=== PATIENT | female | born 1945 | race Caucasian/White ===

== ENCOUNTER 2018-08-04 15:42 | Inpatient (IN) | payer MEDICARE, OTHER ==
[2018-08-04] MEDS ORDERED: NORMAL SALINE 1000 ML 500 ML IV ONE (16:34)
--- NOTE | 2018-08-04 16:38 | ER Document Report ---
ED Medical Screen (RME) - General Chief Complaint: Facial Swelling Stated Complaint: EYE SWELLING Time Seen by Provider: 08/04/18 16:30 Notes: 73 years old female has a habit of scratching her head, diabetic, presents with left frontoparietal swelling redness. And abscess. Multiple small erythematous lesions in the skull TRAVEL OUTSIDE OF THE [place] IN LAST 30 DAYS: No - Related Data Allergies/Adverse Reactions: latex [Latex] Allergy (Mild, Verified 08/04/18 16:20) RASH,ITCHING Sulfa (Sulfonamide Antibiotics) Allergy (Mild, Verified 08/04/18 16:20) NAUSEA VOMITING meperidine HCl [From Demerol] Allergy (Unknown, Verified 08/04/18 16:20) morphine [Morphine] Allergy (Unknown, Verified 08/04/18 16:20) nickel [Nickel] Allergy (Unknown, Verified 08/04/18 16:20) Shellfish * [Shellfish] Allergy (Verified 08/04/18 16:20) Hives epinephrine [Epinephrine] Adverse Reaction (Unknown, Verified 08/04/18 16:20) Past Medical History - Social History Frequency of alcohol use: None Drug Abuse: None - Past Medical History Cardiac Medical History: Reports: Hx Atrial Fibrillation, Hx Hypertension Denies: Hx Coronary Artery Disease, Hx Heart Attack Pulmonary Medical History: Reports: Hx Asthma - [place] Denies: Hx Bronchitis, Hx COPD, Hx Pneumonia Neurological Medical History: Denies: Hx Cerebrovascular Accident, Hx Seizures Endocrine Medical History: Reports: Hx Diabetes Mellitus Type 2 - DIET CONTROLED, Hx Hypothyroidism - POLA'S Renal/ Medical History: Denies: Hx Peritoneal Dialysis GI Medical History: Reports: Hx Gastroesophageal Reflux Disease, Hx Hiatal Hernia Musculoskeltal Medical History: Reports Hx Arthritis, Reports Hx Fibromyalgia Psychiatric Medical History: Reports: Hx Anxiety, Hx Depression Past Surgical History: Reports: Hx Appendectomy, Hx Cholecystectomy, Hx Gynecologic Surgery - OVARIAN CYSTS, EX-LAPS AND LAP SCOPES FOR ENDOMETRIOSIS, Hx Hysterectomy, Hx Orthopedic Surgery - SCREW IN RIGHT 1ST TOE, Hx Tonsillectomy - Immunizations Hx Diphtheria, Pertussis, Tetanus Vaccination: Yes Physical Exam - Vital signs Vitals: Temp Pulse Resp BP Pulse Ox 98.4 F 117 H 14 130/81 H 96 08/04/18 15:48 08/04/18 15:48 08/04/18 15:48 08/04/18 15:48 08/04/18 15:48 Course - Vital Signs Vital signs: Temp Pulse Resp BP Pulse Ox 98.4 F 117 H 14 130/81 H 96 08/04/18 15:48 08/04/18 15:48 08/04/18 15:48 08/04/18 15:48 08/04/18 15:48
--- NOTE | 2018-08-04 17:53 | RADIOLOGY REPORT (SQ) ---
EXAM DESCRIPTION: CT HEAD WITHOUT COMPLETED DATE/TIME: 08/04/2018 5:41 pm REASON FOR STUDY: Left frontoparietal abscess COMPARISON: None. TECHNIQUE: Axial images acquired through the brain without intravenous contrast. Images reviewed wi th bone, brain and subdural windows. Additional sagittal and coronal reconstructions were generated. Images stored on PACS. All CT scanners at this facility use dose modulation, iterative reconstruction, and/or weight based d osing when appropriate to reduce radiation dose to as low as reasonably achievable (ALARA). [facility]: Dose Right [facility]: CareDose [facility]: Dose Right [facility]: Teradose 4D [facility]: Smart DirectRM RADIATION DOSE: CT Rad equipment meets quality standard of care and radiation dose reduction techniq ues were employed. CTDIvol: 53.2 mGy. DLP: 964 mGy-cm. mGy. LIMITATIONS: None. FINDINGS: VENTRICLES: Normal size and contour. CEREBRUM: No masses. No hemorrhage. No midline shift. No evidence for acute infarction. Normal gra y/white matter differentiation. No areas of low density in the white matter. CEREBELLUM: No masses. No hemorrhage. No alteration of density. No evidence for acute infarction. EXTRAAXIAL SPACES: No fluid collections. No masses. ORBITS AND GLOBE: No intra- or extraconal masses. Normal contour of globe without masses. CALVARIUM: No fracture. PARANASAL SINUSES: No fluid or mucosal thickening. SOFT TISSUES: Soft tissue swelling over the left frontal scalp. OTHER: No other significant finding. IMPRESSION: No acute intracranial pathology. Soft tissue swelling over the left frontal scalp. EVIDENCE OF ACUTE STROKE: NO. COMMENT: Quality ID # [id number]: Final reports with documentation of one or more dose reduction techniques (e.g., Automated exposure control, adjustment of the mA and/or kV according to patient size, use of iterative reconstruction technique) TECHNICAL DOCUMENTATION: JOB ID: [id number] [employer]- All Rights Reserved Reading location - IP/workstation name: [email or web address]
[2018-08-04] MEDS ORDERED: CEFTRIAXONE 1 GM/D5W RTU 1 GM/50 ML RTUPB IV ONE (18:00)
[2018-08-04] MEDS ORDERED: VANCOMYCIN HCL INJ 1000 MG VIAL IV ONE (18:48)
[2018-08-04 18:53] LABS: HEMATOCRIT 41.2 % (36.0-47.0); HEMOGLOBIN 13.9 g/dL (12.0-15.5); MEAN CORPUSCULAR HEMOGLOBIN 29.5 pg (27.0-33.4); MEAN CORPUSCULAR HGB CONC 33.6 g/dL (32.0-36.0); MEAN CORPUSCULAR VOLUME 88 fl (80-97); PLATELET COUNT 270 10^3/uL (150-450); RED CELL DISTRIBUTION WIDTH 14.3 % (11.5-14.0); WHITE BLOOD COUNT 21.5 10^3/uL (4.0-10.5)
[2018-08-04 19:12] LABS: ALANINE AMINOTRANSFERASE 27 U/L (9-52); ALBUMIN 3.8 g/dL (3.5-5.0); ALKALINE PHOSPHATASE 148 U/L (38-126); ANION GAP 10 (5-19); ASPARTATE AMINO TRANSFERASE 17 U/L (14-36); BILIRUBIN,DIRECT 0.2 mg/dL (0.0-0.4); BILIRUBIN,TOTAL 0.4 mg/dL (0.2-1.3); BLOOD UREA NITROGEN 23 mg/dL (7-20); CALCIUM 9.3 mg/dL (8.4-10.2); CARBON DIOXIDE 23 mmol/L (22-30); CHLORIDE 100 mmol/L (98-107); POTASSIUM 4.6 mmol/L (3.6-5.0); SODIUM 132.9 mmol/L (137-145); TOTAL PROTEIN 6.3 g/dL (6.3-8.2)
[2018-08-04 19:22] LABS: GLUCOSE 456 mg/dL (75-110)
[2018-08-04 19:29] LABS: ABSOLUTE LYMPHOCYTES# (MANUAL) 1.9 10^3/uL (0.5-4.7); ABSOLUTE MONOCYTES # (MANUAL) 1.7 10^3/uL (0.1-1.4); ABSOLUTE NEUTROPHILS# (MANUAL) 17.8 10^3/uL (1.7-8.2); BASOPHILS % (MANUAL) 0 % (0-2); EOSINOPHILS % (MANUAL) 0 % (0-6); LYMPHOCYTES % (MANUAL) 9 % (13-45); MONOCYTES % (MANUAL) 8 % (3-13); SEGMENTED NEUTROPHILS % (MAN) 83 % (42-78); TOTAL CELLS COUNTED 100
[2018-08-04 19:30] LABS: ANISOCYTOSIS SLIGHT; PLATELET COMMENT ADEQUATE; TOXIC GRANULATION SLIGHT
[2018-08-04] MEDS ORDERED: INSULIN REG, HUMAN 100 UNIT/ML 3 ML VIAL (PYX) IV ONE (19:37)
[2018-08-04] MEDS ORDERED: FENTANYL CITRATE INJ/PF 100 MCG/2 ML AMPUL IV ONE (19:39)
--- NOTE | 2018-08-04 21:12 | RADIOLOGY REPORT (SQ) ---
CT ORBITS WITH IV CONTRAST HISTORY: Evaluate for orbital cellulitis. Eye pain. COMPARISON: None. TECHNIQUE: CT scan of the orbits with IV contrast. This exam was performed according to our departmental dose-optimization program, which includes automated exposure control, adjustment of the mA and/or kV according to patient size and/or use of iterative reconstruction technique. FINDINGS: Mild soft tissue swelling overlying the left scalp. No focal fluid collection is seen. No evidence of preseptal or postseptal cellulitis. No retrobulbar mass or hematoma. The bony structures of the orbit are intact. No mucosal thickening or air-fluid levels in the paranasal sinuses. The mastoid air cells are also clear. IMPRESSION: No acute orbital findings.
[2018-08-04] MEDS ORDERED: KETOROLAC TROMETHAMINE INJ/PF 30 MG/1 ML SDV IV ONE (21:36)
[2018-08-04] MEDS ORDERED: GLUCAGON,HUMAN RECOMB 1 MG INJ IM PRN (21:48)
[2018-08-04] MEDS ORDERED: MAGNESIUM HYDROXIDE SUSP 30 ML UDCUP PO PRN (21:48)
[2018-08-04] MEDS ORDERED: DEXTROSE 40% GEL 15 GM TUBE PO PRN ×2 (21:48)
[2018-08-04] MEDS ORDERED: DEXTROSE 50%-WATER 25 GM/50 ML DISP.SYRIN IV PRN ×2 (21:48)
[2018-08-04] MEDS ORDERED: MAG HYDROX/AL HYDROX/SIMETH SUSP 30 ML UDCUP PO PRN (21:48)
[2018-08-04] MEDS ORDERED: VANCOMYCIN HCL 0 MG in DEXTROSE 5%-WATER 250 ML IV NR (22:00)
[2018-08-04] MEDS ORDERED: NORMAL SALINE 1000 ML 1,000 ML IV ONE (22:04)
--- NOTE | 2018-08-04 22:04 | ER Document Report ---
ED General - General Chief Complaint: Facial Swelling Stated Complaint: EYE SWELLING Time Seen by Provider: 08/04/18 16:30 TRAVEL OUTSIDE OF THE [place] IN LAST 30 DAYS: No - HPI Notes: Patient presents emergency department for evaluation. She states that 5 days ago she awoke to a "lump" on her forehead. She states it looks like a pimple. She denies trying to squeeze it. She states that it is become more red. She has had swelling around her eyes. She states she did have some intermittent double vision. She was seen by her primary care doctor today who sent her here to the emergency department for further evaluation. She states she has had temperatures of 100.3 at home. She also states she is a "prediabetic." - Related Data Allergies/Adverse Reactions: latex [Latex] Allergy (Mild, Verified 08/04/18 16:20) RASH,ITCHING Sulfa (Sulfonamide Antibiotics) Allergy (Mild, Verified 08/04/18 16:20) NAUSEA VOMITING meperidine HCl [From Demerol] Allergy (Unknown, Verified 08/04/18 16:20) morphine [Morphine] Allergy (Unknown, Verified 08/04/18 16:20) nickel [Nickel] Allergy (Unknown, Verified 08/04/18 16:20) Shellfish * [Shellfish] Allergy (Verified 08/04/18 16:20) Hives epinephrine [Epinephrine] Adverse Reaction (Unknown, Verified 08/04/18 16:20) Past Medical History - General Information source: Patient, Relative - Social History Smoking Status: Former Smoker Frequency of alcohol use: None Drug Abuse: None Family History: Reviewed & Not Pertinent Patient has suicidal ideation: No Patient has homicidal ideation: No - Past Medical History Cardiac Medical History: Reports: Hx Atrial Fibrillation, Hx Hypertension Denies: Hx Coronary Artery Disease, Hx Heart Attack Pulmonary Medical History: Reports: Hx Asthma - [place] Denies: Hx Bronchitis, Hx COPD, Hx Pneumonia Neurological Medical History: Denies: Hx Cerebrovascular Accident, Hx Seizures Endocrine Medical History: Reports: Hx Diabetes Mellitus Type 2 - DIET CONTROLED, Hx Hypothyroidism - POLA'S Renal/ Medical History: Denies: Hx Peritoneal Dialysis GI Medical History: Reports: Hx Gastroesophageal Reflux Disease, Hx Hiatal Hernia Musculoskeletal Medical History: Reports Hx Arthritis, Reports Hx Fibromyalgia Psychiatric Medical History: Reports: Hx Anxiety, Hx Depression Past Surgical History: Reports: Hx Appendectomy, Hx Cholecystectomy, Hx Gynecologic Surgery - OVARIAN CYSTS, EX-LAPS AND LAP SCOPES FOR ENDOMETRIOSIS, Hx Hysterectomy, Hx Orthopedic Surgery - SCREW IN RIGHT 1ST TOE, Hx Tonsillectomy - Immunizations Hx Diphtheria, Pertussis, Tetanus Vaccination: Yes Review of Systems - Review of Systems Constitutional: Fever EENT: See HPI Cardiovascular: No symptoms reported Respiratory: No symptoms reported Gastrointestinal: No symptoms reported Musculoskeletal: No symptoms reported Skin: See HPI Neurological/Psychological: No symptoms reported Physical Exam - Vital signs Vitals: Temp Pulse Resp BP Pulse Ox 98.4 F 117 H 14 130/81 H 96 08/04/18 15:48 08/04/18 15:48 08/04/18 15:48 08/04/18 15:48 08/04/18 15:48 Interpretation: Tachycardic - Notes Notes: Patient is awake and alert. Examination of the left frontoparietal region yields an approximate 3 cm raised area that appears to have drained. It is surrounded by induration and erythema that tracks down over the left side of the face. There are numerous small pustules scattered throughout the scalp. Pupils are equal and round, reactive to light. Extra ocular muscles are intact. Neck is supple without thyromegaly or adenopathy. Heart is regular rate and rhythm, lungs are clear to auscultation bilaterally. Abdomen soft nontender with normal active bowel sounds. Patient is awake, alert, oriented x3. No focal neurological deficits. Moves all 4 extremities spontaneously. Course - Re-evaluation Re-evalutation: 08/04/18 22:02 Patient presents to the emergency department for evaluation. On arrival she is markedly tachycardic. She is given IV fluids. Triage did order a CT scan of the head. Because of her visual changes and the cellulitis, was more concerned about an orbital cellulitis. Dedicated CT of the orbits was ordered as well. This is found to be negative. She had Rocephin ordered at triage, which certainly would cover well for orbital cellulitis. I did add vancomycin as my concern for MRSA existed secondary to the multiple pustules. Laboratory investigation revealed a significant leukocytosis. She was also found to be significantly hyperglycemic. I did initially order an insulin bolus. However her blood sugar did lower significantly without medication. We will follow this with Accu-Cheks here in the emergency department. I spoke with Dr. Lima. At this time this patient is hyperglycemic, septic, with clear focus of infection. Cultures are pending. We will admit her for further care. - Vital Signs Vital signs: Temp Pulse Resp BP Pulse Ox 98.4 F 117 H 14 130/81 H 96 08/04/18 15:48 08/04/18 15:48 08/04/18 15:48 08/04/18 15:48 08/04/18 15:48 - Laboratory Result Diagrams: 08/04/18 18:30 08/04/18 18:30 Laboratory results interpreted by me: 08/04/18 08/04/18 08/04/18 18:30 18:30 20:55 WBC 21.5 H RDW 14.3 H Seg Neuts % (Manual) 83 H Lymphocytes % (Manual) 9 L Abs Neuts (Manual) 17.8 H Abs Monocytes (Manual) 1.7 H Sodium 132.9 L BUN 23 H Glucose 456 H* POC Glucose 290 H Alkaline Phosphatase 148 H - Diagnostic Test Radiology reviewed: Reports reviewed - Note acute intracranial process, no orbital cellulitis. Discharge - Discharge Clinical Impression: Cellulitis, Sepsis, Hyperglycemia Condition: Fair Disposition: ADMITTED OBSERVATION Admitting Provider: Hospitalist - Clarence
[2018-08-04] MEDS: DILTIAZEM HCL 60 MG TABLET PO SCH (22:43)
[2018-08-04] MEDS: HEPARIN SOD (PORCINE) 5,000 UNIT/ML 1 ML SYRINGE SUBCUT SCH (22:45)
--- NOTE | 2018-08-05 05:03 | PDOC H&P ---
History of Present Illness Admission Date/PCP: 08/04/18 22:29 Patient complains of: Left scalp swelling and pain History of Present Illness: RANDAL ROMERO is a 73 year old female with a past medical history of paroxysmal atrial fibrillation on Eliquis status post ablation and currently in sinus rhythm, diabetes, hypothyroidism, fibromyalgia and chronic pain. She presents with a 5-day history of a tender lump on the left scalp. She denies trauma or scratch and has treated with [id number] topical treatments without improvement. In the emergency room she has a 2 x 2 centimeter indurated crusted lesion without exudate but extensive swelling to the left forehead and periorbital space. A CT does not show fluid collection she is started on IV ant ibiotics and referred to the hospitalist for admission. She denies previous episode or recent antibiotics she admits recent poor glycemic control. Past Medical History Cardiac Medical History: Reports: Atrial Fibrillation, Hypertension Denies: Coronary Artery Disease, Myocardial Infarction Pulmonary Medical History: Reports: Asthma - [place] Denies: Bronchitis, Chronic Obstructive Pulmonary Disease (COPD), Pneumonia Neurological Medical History: Denies: Seizures Endocrine Medical History: Reports: Diabetes Mellitus Type 2 - DIET CONTROLED, Hypothyroidism - POLA'S GI Medical History: Reports: Gastroesophageal Reflux Disease, Hiatal Hernia Musculoskeltal Medical History: Reports: Arthritis, Fibromyalgia Psychiatric Medical History: Reports: Depression Hematology: Reports: Anemia - PERNICIOUS ANEMIA Past Surgical History Past Surgical History: Reports: Appendectomy, Cholecystectomy, Hysterectomy, Orthopedic Surgery - SCREW IN RIGHT 1ST TOE, Tonsillectomy Social History Information Source: Patient Lives with: Spouse/Significant other Smoking Status: Former Smoker Frequency of Alcohol Use: Rare - Advance Directive Resuscitation Status: Full Code Family History Family History: Hypertension Parental Family History Reviewed: Yes Children Family History Reviewed: Yes Sibling(s) Family History Reviewed.: Yes Medication/Allergy Home Medications: Alprazolam [Alprazolam Odt] 1 mg PO TID 09/23/13 Aspirin [Aspirin 325 mg Tablet] 325 mg PO DAILY PRN 09/23/13 Biotin [Biotin 1 mg Tablet] 1 mg PO Q72HP PRN 09/23/13 Chromium Picolinate [Chromium Picolinate 400 mcg Tablet] 2 tab PO DAILY PRN 09/23/13 Cyclobenzaprine HCl [Flexeril 10 mg Tablet] 10 mg PO TIDP PRN 09/23/13 Diazepam 5 mg PO TID PRN 09/23/13 Dicyclomine HCl [Bentyl 10 mg Capsule] 1 cap PO QID PRN 09/23/13 Diltiazem HCl [Diltiazem 24Hr ER] 360 mg PO DAILY 09/23/13 Estradiol [Estrace] 1 mg PO DAILY 09/23/13 Fexofenadine HCl [Lashell] 180 mg PO ASDIR PRN 09/23/13 Fluticasone Propionate [Flovent Diskus 50 mcg] 1 puff IH ASDIR PRN 09/23/13 Furosemide 40 mg PO DAILY PRN 09/23/13 Krill/Arnett-3/Dha/Epa/Lipids [Arnett-3 Krill Oil 500 mg Sfgl] 1 each PO DAILY 09/23/13 L.acidoph,Saliva/B.bif/S.therm [Acidophilus 175 Mg Capsule] 175 mg PO ASDIR PRN 09/23/13 Lansoprazole 30 mg PO DAILY 09/23/13 Levothyroxine Sodium 100 mcg PO Q48H 09/23/13 Levothyroxine Sodium 125 mcg PO Q48H 09/23/13 Lisinopril 10 mg PO DAILY 09/23/13 Losartan Potassium 100 mg PO DAILY 09/23/13 Magnesium 250 mg PO DAILY 09/23/13 Mv-Mn/Iron/Folic Acid/Herb 190 [Vitamin D3 Complete Caplet] 50,000 units PO Q24H 09/23/13 Proventil Hfa 1 puff IH Q4 PRN 09/23/13 Ranitidine HCl 150 mg PO DAILY 09/23/13 Sertraline HCl 200 mg PO QHS 09/23/13 Tramadol HCl 50 mg PO Q6H PRN 09/23/13 Ubidecarenone [Co Q-10] 200 mg PO Q48H 09/23/13 Allergies/Adverse Reactions: latex [Latex] Allergy (Mild, Verified 08/04/18 16:20) RASH,ITCHING Sulfa (Sulfonamide Antibiotics) Allergy (Mild, Verified 08/04/18 16:20) NAUSEA VOMITING meperidine HCl [From Demerol] Allergy (Unknown, Verified 08/04/18 16:20) morphine [Morphine] Allergy (Unknown, Verified 08/04/18 16:20) nickel [Nickel] Allergy (Unknown, Verified 08/04/18 16:20) Shellfish * [Shellfish] Allergy (Verified 08/04/18 16:20) Hives epinephrine [Epinephrine] Adverse Reaction (Unknown, Verified 08/04/18 16:20) Review of Systems Constitutional: ABSENT: chills, fever(s), headache(s), weight gain, weight loss Eyes: ABSENT: visual disturbances Ears: ABSENT: hearing changes Cardiovascular: ABSENT: chest pain, dyspnea on exertion, edema, orthropnea, palpitations Respiratory: ABSENT: cough, hemoptysis Gastrointestinal: ABSENT: abdominal pain, constipation, diarrhea, hematemesis, hematochezia, nausea, vomiting Genitourinary: ABSENT: dysuria, hematuria Musculoskeletal: ABSENT: joint swelling Integumentary: ABSENT: rash, wounds Neurological: ABSENT: abnormal gait, abnormal speech, confusion, dizziness, focal weakness, syncope Psychiatric: ABSENT: anxiety, depression, homidical ideation, suicidal ideation Endocrine: ABSENT: cold intolerance, heat intolerance, polydipsia, polyuria Hematologic/Lymphatic: ABSENT: easy bleeding, easy bruising Physical Exam Vital Signs: Temp Pulse Resp BP Pulse Ox 99.3 F 104 H 17 133/78 H 97 08/05/18 00:22 08/05/18 00:22 08/05/18 00:22 08/05/18 00:22 08/05/18 00:22 Intake & Output 08/03/18 08/04/18 08/05/18 11:59 11:59 11:59 Intake Total 1550 Balance 1550 Weight 71.4 kg General appearance: PRESENT: cooperative, mild distress, well-developed, well- nourished. ABSENT: hard of hearing Head exam: PRESENT: other. ABSENT: atraumatic - 2 x 2 centimeter indurated crusted lesion without exudate, edema extends anteriorly to the forehead and left orbit. Head Image: 1 - 2 x 2 centimeter frontoparietal indurated crusted scalp lesion with edema to the left orbit Eye exam: PRESENT: conjunctiva pink, EOMI, PERRLA. ABSENT: scleral icterus Ear exam: PRESENT: normal external ear exam Mouth exam: PRESENT: moist, tongue midline Neck exam: ABSENT: carotid bruit, JVD, lymphadenopathy, thyromegaly Respiratory exam: PRESENT: clear to auscultation dontrell. ABSENT: rales, rhonchi, wheezes Cardiovascular exam: PRESENT: RRR. ABSENT: diastolic murmur, rubs, systolic murmur Pulses: PRESENT: normal dorsalis pedis pul Vascular exam: PRESENT: normal capillary refill GI/Abdominal exam: PRESENT: normal bowel sounds, soft. ABSENT: distended, guarding, mass, organolmegaly, rebound, tenderness Rectal exam: PRESENT: deferred Extremities exam: PRESENT: full ROM. ABSENT: calf tenderness, clubbing, pedal edema Neurological exam: PRESENT: alert, awake, oriented to person, oriented to place, oriented to time, oriented to situation, CN II-XII grossly intact. ABSENT: motor sensory deficit Psychiatric exam: PRESENT: appropriate affect, normal mood. ABSENT: homicidal ideation, suicidal ideation Skin exam: PRESENT: dry, intact, warm. ABSENT: cyanosis, rash Results Laboratory Results: 08/04/18 18:30 08/04/18 18:30 08/04/18 08/04/18 18:30 18:30 WBC 21.5 H RBC 4.70 Hgb 13.9 Hct 41.2 MCV 88 MCH 29.5 MCHC 33.6 RDW 14.3 H Plt Count 270 Seg Neutrophils % Not Reportable Lymphocytes % Not Reportable Monocytes % Not Reportable Eosinophils % Not Reportable Basophils % Not Reportable Absolute Neutrophils Not Reportable Absolute Lymphocytes Not Reportable Absolute Monocytes Not Reportable Absolute Eosinophils Not Reportable Absolute Basophils Not Reportable Sodium 132.9 L Potassium 4.6 Chloride 100 Carbon Dioxide 23 Anion Gap 10 BUN 23 H Creatinine 0.62 Est GFR ( Amer) > 60 Est GFR (Non-Af Amer) > 60 Glucose 456 H* Calcium 9.3 Total Bilirubin 0.4 AST 17 ALT 27 Alkaline Phosphatase 148 H Total Protein 6.3 Albumin 3.8 Impressions: Head CT 08/04/18 16:34 IMPRESSION: No acute intracranial pathology. Soft tissue swelling over the le ft frontal scalp. EVIDENCE OF ACUTE STROKE: NO. Orbit CT 08/04/18 18:47 IMPRESSION: No acute orbital findings. Assessment & Plan - Diagnosis (1) Facial cellulitis Is this a current diagnosis for this admission?: Yes Plan: Likely folliculitis concern for developing furuncle or abscess. IV vancomycin and cefepime. Optimize blood sugar and symptomatic management. Consider surgical consult for I&D if exudate appears (2) Hyperglycemia Is this a current diagnosis for this admission?: Yes Plan: Follow-up A1c, sliding scale insulin with long-acting insulin coverage. Hold metformin (3) Sepsis Is this a current diagnosis for this admission?: Yes Plan: Secondary to #1, IV fluid challenge, empiric antibiotics, follow-up blood culture and CBC - Time Time Spent: 30 to 50 Minutes
[2018-08-05] MEDS: HEPARIN SOD (PORCINE) 5,000 UNIT/ML 1 ML SYRINGE SUBCUT SCH ×3 (05:16→22:23)
[2018-08-05] MEDS: KETOROLAC TROMETHAMINE INJ/PF 30 MG/1 ML SDV IV PRN ×2 (05:22→11:33)
[2018-08-05] MEDS: NORMAL SALINE 1000 ML 1,000 ML IV PRN ×2 (05:22→09:28)
[2018-08-05] MEDS: ALPRAZOLAM 0.5 MG TABLET PO PRN ×2 (05:22→16:31)
[2018-08-05] MEDS: DILTIAZEM HCL 60 MG TABLET PO SCH ×3 (05:23→22:14)
[2018-08-05 06:43] LABS: ABSOLUTE BASOPHILS # (AUTO) 0.1 10^3/uL (0.0-0.2); ABSOLUTE LYMPHOCYTES (AUTO) 1.7 10^3/uL (0.5-4.7); ABSOLUTE NEUT (AUTO) 14.9 10^3/uL (1.7-8.2); BASOPHILS % (AUTO) 0.3 % (0-2); EOSINOPHILS % (AUTO) 0.2 % (0-6); HEMATOCRIT 36.7 % (36.0-47.0); HEMOGLOBIN 12.2 g/dL (12.0-15.5); LYMPHOCYTES % (AUTO) 9.7 % (13-45); MEAN CORPUSCULAR HEMOGLOBIN 29.5 pg (27.0-33.4); MEAN CORPUSCULAR HGB CONC 33.4 g/dL (32.0-36.0); MEAN CORPUSCULAR VOLUME 88 fl (80-97); MONOCYTES % (AUTO) 5.6 % (3-13); PLATELET COUNT 241 10^3/uL (150-450); RED BLOOD COUNT 4.16 10^6/uL (3.72-5.28); RED CELL DISTRIBUTION WIDTH 14.1 % (11.5-14.0); SEGMENTED NEUTROPHILS % (AUTO) 84.2 % (42-78); TOTAL CELLS COUNTED % (AUTO) 100 %; WHITE BLOOD COUNT 17.7 10^3/uL (4.0-10.5)
[2018-08-05 07:14] LABS: ANION GAP 9 (5-19); BLOOD UREA NITROGEN 21 mg/dL (7-20); CARBON DIOXIDE 23 mmol/L (22-30); CHLORIDE 103 mmol/L (98-107); GLUCOSE 377 mg/dL (75-110); POTASSIUM 4.7 mmol/L (3.6-5.0); SODIUM 134.6 mmol/L (137-145)
[2018-08-05] MEDS: INSULIN LISPRO 100 UNIT/ML 3 ML VIAL SUBCUT SCH ×3 (09:23→18:14)
[2018-08-05] MEDS: DOCUSATE SODIUM 100 MG CAPSULE PO SCH ×2 (09:23→18:15)
[2018-08-05] MEDS: VANCOMYCIN HCL 1,000 MG in DEXTROSE 5%-WATER 250 ML IV SCH ×2 (09:24→22:15)
[2018-08-05] MEDS: ACETAMINOPHEN 325 MG TABLET PO PRN (10:34)
--- NOTE | 2018-08-05 15:27 | PDOC PROGRESS REPORT ---
Subjective Progress Note for:: 08/05/18 Subjective:: This is a 73 years old female patient with multiple comorbidities including paroxysmal atrial fibrillation, hypertension, hyperlipidemia, type 2 diabetes mellitus, hypothyroidism and fibromyalgia presented with 5 days history of tender swelling over her scalp. Her initial evaluation shows marked leukocytosis with white cell count of 21,000. Patient has been started empirically on vancomycin. This afternoon when I evaluated her the scalp swelling which is located over the left frontotemporal area measures 2 x 3 cm it is erythematous tender and fluctuating. I consulted Dr. Kumar. Reason For Visit: ABCESS DIABETIC Physical Exam Vital Signs: Temp Pulse Resp BP Pulse Ox 98.1 F 80 14 114/55 L 94 08/05/18 11:14 08/05/18 11:14 08/05/18 11:14 08/05/18 11:14 08/05/18 11:14 Intake & Output 08/04/18 08/05/18 08/06/18 06:59 06:59 06:59 Intake Total 1668 1000 Balance 1668 1000 Weight 74.9 kg General appearance: PRESENT: no acute distress Head exam: PRESENT: atraumatic, other - There is a 2 x 3 cm tender fluctuating mass over her frontotemporal scalp Eye exam: PRESENT: conjunctiva pink Neck exam: ABSENT: carotid bruit, JVD, lymphadenopathy, thyromegaly Respiratory exam: PRESENT: clear to auscultation dontrell. ABSENT: rales, rhonchi, wheezes Cardiovascular exam: PRESENT: RRR. ABSENT: diastolic murmur, rubs, systolic murmur GI/Abdominal exam: PRESENT: normal bowel sounds, soft. ABSENT: distended, guarding, mass, organolmegaly, rebound, tenderness Neurological exam: PRESENT: alert, awake, oriented to time, oriented to situation Results Laboratory Results: 08/05/18 05:53 08/05/18 05:53 08/04/18 08/04/18 08/05/18 18:30 18:30 05:53 WBC 21.5 H 17.7 H RBC 4.70 4.16 Hgb 13.9 12.2 Hct 41.2 36.7 MCV 88 88 MCH 29.5 29.5 MCHC 33.6 33.4 RDW 14.3 H 14.1 H Plt Count 270 241 Seg Neutrophils % Not Reportable 84.2 H Lymphocytes % Not Reportable 9.7 L Monocytes % Not Reportable 5.6 Eosinophils % Not Reportable 0.2 Basophils % Not Reportable 0.3 Absolute Neutrophils Not Reportable 14.9 H Absolute Lymphocytes Not Reportable 1.7 Absolute Monocytes Not Reportable 1.0 Absolute Eosinophils Not Reportable 0.0 Absolute Basophils Not Reportable 0.1 Sodium 132.9 L Potassium 4.6 Chloride 100 Carbon Dioxide 23 Anion Gap 10 BUN 23 H Creatinine 0.62 Est GFR ( Amer) > 60 Est GFR (Non-Af Amer) > 60 Glucose 456 H* Calcium 9.3 Total Bilirubin 0.4 AST 17 ALT 27 Alkaline Phosphatase 148 H Total Protein 6.3 Albumin 3.8 08/05/18 05:53 WBC RBC Hgb Hct MCV MCH MCHC RDW Plt Count Seg Neutrophils % Lymphocytes % Monocytes % Eosinophils % Basophils % Absolute Neutrophils Absolute Lymphocytes Absolute Monocytes Absolute Eosinophils Absolute Basophils Sodium 134.6 L Potassium 4.7 Chloride 103 Carbon Dioxide 23 Anion Gap 9 BUN 21 H Creatinine 0.62 Est GFR ( Amer) > 60 Est GFR (Non-Af Amer) > 60 Glucose 377 H Calcium 8.0 L Total Bilirubin AST ALT Alkaline Phosphatase Total Protein Albumin Impressions: Head CT 08/04/18 16:34 IMPRESSION: No acute intracranial pathology. Soft tissue swelling over the left frontal scalp. EVIDENCE OF ACUTE STROKE: NO. Orbit CT 08/04/18 18:47 IMPRESSION: No acute orbital findings.
[2018-08-05] MEDS ORDERED: LIDOCAINE 1% INJ-PF (10 MG/ML) 30 ML SDV INJ PRN (16:30)
[2018-08-05] MEDS ORDERED: LIDOCAINE 1%/EPINEPHRINE INJ 20 ML VIAL INJ PRN (17:14)
--- NOTE | 2018-08-05 18:04 | PDOC CONSULTATION ---
Consultation Consult Date: 08/05/18 Consult reason:: left forehead abscess History of Present Illness Admission Date/PCP: 08/04/18 22:29 History of Present Illness: RANDAL ROMERO is a 73 year old female, She states that 5 days ago she awoke to a "lump" on her forehead. She states it looks like a pimple. She denies trying to squeeze it. She states that it is become more red. She has had swelling around her eyes she has been admitted for iv abx and rx of the left forehead abscess Past Medical History Cardiac Medical History: Reports: Atrial Fibrillation, Hypertension Denies: Coronary Artery Disease, Myocardial Infarction Pulmonary Medical History: Reports: Asthma - [place] Denies: Bronchitis, Chronic Obstructive Pulmonary Disease (COPD), Pneumonia Neurological Medical History: Denies: Seizures Endocrine Medical History: Reports: Diabetes Mellitus Type 2 - DIET CONTROLED, Hypothyroidism - POLA'S GI Medical History: Reports: Gastroesophageal Reflux Disease, Hiatal Hernia Musculoskeltal Medical History: Reports: Arthritis, Fibromyalgia Psychiatric Medical History: Reports: Depression Hematology: Reports: Anemia - PERNICIOUS ANEMIA Past Surgical History Past Surgical History: Reports: Appendectomy, Cholecystectomy, Hysterectomy, Orthopedic Surgery - SCREW IN RIGHT 1ST TOE, Tonsillectomy Social History Lives with: Spouse/Significant other Smoking Status: Former Smoker Frequency of Alcohol Use: Rare Family History Family History: Hypertension Parental Family History Reviewed: No Children Family History Reviewed: NA Sibling(s) Family History Reviewed.: NA Medication/Allergy Home Medications: Alprazolam [Xanax] 1 mg PO Q12 PRN 08/05/18 Cyclobenzaprine HCl [Flexeril 10 mg Tablet] 10 mg PO Q8HP PRN 08/05/18 Diltiazem HCl [Diltiazem 24Hr ER] 240 mg PO DAILY 08/05/18 Levothyroxine Sodium [Synthroid 0.1 mg Tablet] 0.1 mg PO DAILY 08/05/18 Losartan Potassium [Cozaar 100 mg Tablet] 100 mg PO DAILY 08/05/18 Ranitidine HCl [Heartburn Relief 150] 150 mg PO QHS 08/05/18 Rivaroxaban [Xarelto] 20 mg PO DAILY 08/05/18 Sertraline HCl [Zoloft 50 mg Tablet] 50 mg PO DAILY 08/05/18 Allergies/Adverse Reactions: latex [Latex] Allergy (Mild, Verified 08/04/18 16:20) RASH,ITCHING Sulfa (Sulfonamide Antibiotics) Allergy (Mild, Verified 08/04/18 16:20) NAUSEA VOMITING meperidine HCl [From Demerol] Allergy (Unknown, Verified 08/04/18 16:20) morphine [Morphine] Allergy (Unknown, Verified 08/04/18 16:20) nickel [Nickel] Allergy (Unknown, Verified 08/04/18 16:20) Shellfish * [Shellfish] Allergy (Verified 08/04/18 16:20) Hives epinephrine [Epinephrine] Adverse Reaction (Unknown, Verified 08/04/18 16:20) Physical Exam Vital Signs: Temp Pulse Resp BP Pulse Ox 98.1 F 91 13 120/89 H 94 08/05/18 16:00 08/05/18 16:00 08/05/18 16:00 08/05/18 16:00 08/05/18 11:14 Intake & Output 08/04/18 08/05/18 08/06/18 06:59 06:59 06:59 Intake Total 1668 1300 Output Total 500 Balance 1668 800 Weight 74.9 kg General appearance: PRESENT: no acute distress Head exam: PRESENT: other - left forehead juist at the hairline, there is a 3cm swelling with fluctulence and drainage of pus surround cellulitis Eye exam: PRESENT: EOMI, PERRLA Neck exam: PRESENT: full ROM Respiratory exam: PRESENT: clear to auscultation dontrell Cardiovascular exam: PRESENT: RRR Pulses: PRESENT: normal radial pulses, normal femoral pulses GI/Abdominal exam: PRESENT: soft Rectal exam: PRESENT: deferred Musculoskeletal exam: PRESENT: full ROM Neurological exam: PRESENT: alert, altered, awake, oriented to time, oriented to situation Results Laboratory Results: 08/05/18 05:53 08/05/18 05:53 08/04/18 08/04/18 08/05/18 18:30 18:30 05:53 WBC 21.5 H 17.7 H RBC 4.70 4.16 Hgb 13.9 12.2 Hct 41.2 36.7 MCV 88 88 MCH 29.5 29.5 MCHC 33.6 33.4 RDW 14.3 H 14.1 H Plt Count 270 241 Seg Neutrophils % Not Reportable 84.2 H Lymphocytes % Not Reportable 9.7 L Monocytes % Not Reportable 5.6 Eosinophils % Not Reportable 0.2 Basophils % Not Reportable 0.3 Absolute Neutrophils Not Reportable 14.9 H Absolute Lymphocytes Not Reportable 1.7 Absolute Monocytes Not Reportable 1.0 Absolute Eosinophils Not Reportable 0.0 Absolute Basophils Not Reportable 0.1 Sodium 132.9 L Potassium 4.6 Chloride 100 Carbon Dioxide 23 Anion Gap 10 BUN 23 H Creatinine 0.62 Est GFR ( Amer) > 60 Est GFR (Non-Af Amer) > 60 Glucose 456 H* Calcium 9.3 Total Bilirubin 0.4 AST 17 ALT 27 Alkaline Phosphatase 148 H Total Protein 6.3 Albumin 3.8 08/05/18 05:53 WBC RBC Hgb Hct MCV MCH MCHC RDW Plt Count Seg Neutrophils % Lymphocytes % Monocytes % Eosinophils % Basophils % Absolute Neutrophils Absolute Lymphocytes Absolute Monocytes Absolute Eosinophils Absolute Basophils Sodium 134.6 L Potassium 4.7 Chloride 103 Carbon Dioxide 23 Anion Gap 9 BUN 21 H Creatinine 0.62 Est GFR ( Amer) > 60 Est GFR (Non-Af Amer) > 60 Glucose 377 H Calcium 8.0 L Total Bilirubin AST ALT Alkaline Phosphatase Total Protein Albumin Impressions: Head CT 08/04/18 16:34 IMPRESSION: No acute intracranial pathology. Soft tissue swelling over the left frontal scalp. EVIDENCE OF ACUTE STROKE: NO. Orbit CT 08/04/18 18:47 IMPRESSION: No acute orbital findings. Assessment & Plan - Diagnosis (1) Abscess or cellulitis of scalp Is this a current diagnosis for this admission?: Yes - Plan Summary Plan Summary: will plan on incision and drainage of left forehead abscess risk and benefits discussed with pt including bleeding, swelling, scar formation she understands and agrees to proceed
[2018-08-05] MEDS ORDERED: BUPIVACAINE HCL 0.25 % INJ/PF (2.5 MG/1 ML) 30 ML VIAL ONE (18:47)
[2018-08-05] MEDS ORDERED: LIDOCAINE 2% INJ-PF (100 MG/5 ML) SYRINGE ONE (19:11)
[2018-08-05] MEDS ORDERED: FENTANYL CITRATE INJ/PF 100 MCG/2 ML AMPUL ONE (19:11)
[2018-08-05] MEDS ORDERED: MIDAZOLAM 2 MG/2 ML INJ ONE (19:11)
[2018-08-05] MEDS ORDERED: KETAMINE HCL INJ 500 MG/10 ML VIAL ONE (19:11)
[2018-08-05] MEDS ORDERED: ACETAMINOPHEN 1,000 MG/100 ML RTUPB IV ONE (19:12)
[2018-08-05] MEDS ORDERED: DEXAMETHASONE SOD PHOSPHATE INJ 4 MG/1 ML VIAL ONE (19:12)
[2018-08-05] MEDS ORDERED: ONDANSETRON HCL INJ/PF 4 MG/2 ML SDV ONE (19:12)
[2018-08-05] MEDS ORDERED: PROPOFOL INJ 200 MG/20 ML VIAL IV ONE (19:12)
[2018-08-05] MEDS ORDERED: BUPIVACAINE HCL 0.5%-EPI 1:200000 INJ/PF 30 ML VIAL ONE (19:34)
[2018-08-05] MEDS ORDERED: BACITRACIN INJ 50,000 UNIT VIAL ONE (19:51)
[2018-08-05] MEDS ORDERED: DIPHENHYDRAMINE HCL 50 MG/ML VIAL IV PRN (20:03)
[2018-08-05] MEDS ORDERED: FENTANYL CITRATE INJ/PF 100 MCG/2 ML AMPUL IV PRN ×3 (20:03)
[2018-08-05] MEDS: FENTANYL CITRATE INJ/PF 100 MCG/2 ML AMPUL ONE ×2 (20:23→20:25)
--- NOTE | 2018-08-05 20:30 | Operative Report ---
Operative Report DATE OF SURGERY: 08/05/18 PREOPERATIVE DIAGNOSIS: scalp abscess POSTOPERATIVE DIAGNOSIS: scalp abscess OPERATION: incision,drainage,debridement SURGEON: DAYSI MURRELL ANESTHESIA: LMAC TISSUE REMOVED OR ALTERED: skin from scalp COMPLICATIONS: none ESTIMATED BLOOD LOSS: 50cc INTRAOPERATIVE FINDINGS: multicystic abscess PROCEDURE: see dictation
--- NOTE | 2018-08-05 22:23 | OPERATIVE REPORT E ---
Operative Report NAME: RANDAL ROMERO : 1945 AGE: 73Y DATE OF SURGERY: 08/05/2018 ROOM: 435 PREOPERATIVE DIAGNOSIS: LEFT-SIDED FRONTAL SCALP ABSCESS. POSTOPERATIVE DIAGNOSIS: LEFT-SIDED FRONTAL SCALP ABSCESS. OPERATIVE PROCEDURE: Incision and drainage and debridement of frontal scalp abscess, left. SURGEON: DAYSI MURRELL M.D. INDICATIONS FOR OPERATION: This is a 73-year-old female who presented with swelling of her left face and an abscess on her left frontal scalp just at the hairline. It had been draining some purulent material and caused her face to swell up. Developed fevers and she sought out her primary physician who admitted her to the hospital for antibiotics. Surgery was consulted for evaluation of this abscess and a possible incision and drainage. DESCRIPTION OF PROCEDURE: The patient was brought to the operating room in an awake and alert and stable condition, placed on the operating room table in the supine position, and given IV sedation. The left scalp was prepped and draped. The hairline was shaved a shaver and after adequate prep there was some matted fibrinous exudate on the frontal aspect of the scalp just at the hairline. This was cleared off with Betadine brush and underneath it there was multiple punctate cystic draining sinus tracts of the skin that extended down into the subcutaneous tissue. We, therefore, using an elliptical incision using a 15 blade, approximately 6 cm long and 4 cm wide, and carried our dissection down through the subcutaneous tissue of the scalp in the frontal area. Once we made our incision a large amount of purulent creamy white pus exuded from the wound and you could see that it was multicystic and loculated. We, therefore, had to extend our incision cranially and caudally to encompass all these cystic areas that appeared consistent with methicillin-resistant Staphylococcus aureus. There was no evidence of any foreign body or ingrown hair, there were just multiple cystic areas of abscessed cavity. Once we continued our debridement through the subcutaneous tissue, we debrided down to the galea of the scalp, did not reach the periosteum of the frontal bone. We excised all and necrotic tissue as well as the tissue that was exuding the pus and we sent off for pathology specimen which included the skin and a culture for anaerobic, aerobic, and fungal of the pus. Once this was completed we irrigated copiously with normal saline, suctioned dry. Hemostasis was obtained with Bovie cautery and then we used Surgicel on the base of it with the intention to control any oozing and then on top of the Surgicel we packed with an Iodoform gauze strip gauze. A sterile dressing was applied, which completed the procedure. Estimated blood loss was less than 50 mL. Sponge and needle counts correct x2. The patient was awakened in the operating room and transferred to recovery in stable condition. No complications. DICTATING PHYSICIAN: DAYSI MURRELL M.D. [id number] PHY#: [id number] ID: [id number] JOB#: [id number] ACCT: [id number] cc:DAYSI MURRELL M.D. >
--- NOTE | 2018-08-06 00:33 | EKG REPORT ---
SEVERITY:- ABNORMAL ECG - SINUS RHYTHM LEFT BUNDLE BRANCH BLOCK : Confirmed by: Vanesa German MD 06-Aug-2018 00:32:04
[2018-08-06] MEDS: ACETAMINOPHEN 325 MG TABLET PO PRN ×3 (02:09→16:43)
[2018-08-06] MEDS: ALPRAZOLAM 0.5 MG TABLET PO PRN ×3 (02:10→21:45)
[2018-08-06 06:41] LABS: ABSOLUTE BASOPHILS # (AUTO) 0.1 10^3/uL (0.0-0.2); ABSOLUTE EOSINOPHILS # (AUTO) 0.1 10^3/uL (0.0-0.6); ABSOLUTE LYMPHOCYTES (AUTO) 1.4 10^3/uL (0.5-4.7); ABSOLUTE MONOCYTES (AUTO) 0.8 10^3/uL (0.1-1.4); ABSOLUTE NEUT (AUTO) 11.9 10^3/uL (1.7-8.2); BASOPHILS % (AUTO) 0.5 % (0-2); EOSINOPHILS % (AUTO) 0.5 % (0-6); HEMATOCRIT 36.8 % (36.0-47.0); HEMOGLOBIN 12.5 g/dL (12.0-15.5); LYMPHOCYTES % (AUTO) 9.7 % (13-45); MEAN CORPUSCULAR HEMOGLOBIN 29.7 pg (27.0-33.4); MEAN CORPUSCULAR HGB CONC 33.9 g/dL (32.0-36.0); MEAN CORPUSCULAR VOLUME 88 fl (80-97); MONOCYTES % (AUTO) 5.3 % (3-13); PLATELET COUNT 231 10^3/uL (150-450); RED BLOOD COUNT 4.21 10^6/uL (3.72-5.28); RED CELL DISTRIBUTION WIDTH 14.1 % (11.5-14.0); TOTAL CELLS COUNTED % (AUTO) 100 %; WHITE BLOOD COUNT 14.2 10^3/uL (4.0-10.5)
[2018-08-06] MEDS: DILTIAZEM HCL 60 MG TABLET PO SCH (06:45)
[2018-08-06] MEDS: HEPARIN SOD (PORCINE) 5,000 UNIT/ML 1 ML SYRINGE SUBCUT SCH (06:46)
[2018-08-06 06:55] LABS: ANION GAP 7 (5-19); BLOOD UREA NITROGEN 17 mg/dL (7-20); CALCIUM 8.6 mg/dL (8.4-10.2); CARBON DIOXIDE 22 mmol/L (22-30); CHLORIDE 106 mmol/L (98-107); GLUCOSE 339 mg/dL (75-110); POTASSIUM 4.7 mmol/L (3.6-5.0); SODIUM 135.4 mmol/L (137-145)
[2018-08-06] MEDS: INSULIN LISPRO 100 UNIT/ML 3 ML VIAL SUBCUT SCH (08:34)
[2018-08-06 10:55] LABS: VANCOMYCIN,TROUGH 9.7 ug/mL (5.0-20.0)
--- NOTE | 2018-08-06 11:08 | PDOC PROGRESS REPORT ---
Subjective Progress Note for:: 08/06/18 Subjective:: C/o left forehead pain Reason For Visit: ABCESS DIABETIC Physical Exam Vital Signs: Temp Pulse Resp BP Pulse Ox 98.9 F 84 18 118/54 L 96 08/06/18 01:10 08/06/18 07:00 08/06/18 01:10 08/06/18 01:10 08/06/18 01:10 Intake & Output 08/05/18 08/06/18 08/07/18 06:59 06:59 06:59 Intake Total 1668 2800 Output Total 510 Balance 1668 2290 Weight 74.9 kg 77.5 kg General appearance: PRESENT: no acute distress Head exam: PRESENT: other - Left foreahead surgical wound clean, granuating, large cutaneous defect approximately 3 x 2 cm and exposed galea, areas of deep subcutaneous tissues discoloration. wound edges with violaceous erythema Results Laboratory Results: 08/06/18 06:21 08/06/18 06:21 08/06/18 08/06/18 08/06/18 06:21 06:21 06:21 WBC 14.2 H RBC 4.21 Hgb 12.5 Hct 36.8 MCV 88 MCH 29.7 MCHC 33.9 RDW 14.1 H Plt Count 231 Seg Neutrophils % 84.0 H Lymphocytes % 9.7 L Monocytes % 5.3 Eosinophils % 0.5 Basophils % 0.5 Absolute Neutrophils 11.9 H Absolute Lymphocytes 1.4 Absolute Monocytes 0.8 Absolute Eosinophils 0.1 Absolute Basophils 0.1 Sodium 135.4 L Potassium 4.7 Chloride 106 Carbon Dioxide 22 Anion Gap 7 BUN 17 Creatinine 0.52 Est GFR ( Amer) > 60 Est GFR (Non-Af Amer) > 60 Glucose 339 H Calcium 8.6 TSH 4.62 Impressions: Head CT 08/04/18 16:34 IMPRESSION: No acute intracranial pathology. Soft tissue swelling over the left frontal scalp. EVIDENCE OF ACUTE STROKE: NO. Orbit CT 08/04/18 18:47 IMPRESSION: No acute orbital findings. Assessment & Plan - Diagnosis (1) Abscess or cellulitis of scalp Is this a current diagnosis for this admission?: Yes - Plan Summary Plan Summary: A/ POD#1 after I&D of left forehead abscess and excision of large area of tissue necrosis Residual large subcutaneous defect (3 cm x 1.5 cm) with areas of tissue discoloration: differential diagnosis is persistent tissue necrosis vs. surgical Bovie use Violaceous erythema of the skin surroundng the forehead defect patient on Vancomycin Cx pending WBC decreased to14.2 today from 17.7 yesterday P/ Can resume her antiarrhythmic medication (Tikosyn) Hold off Xeralto until further surgical tx has been ruled out Add Zosyn to her antibiotic regimen BID dressing changes with NS wet-to-dry sponges NPO after midnight fr possible re-debridment in AM
[2018-08-06] MEDS ORDERED: GLUCAGON,HUMAN RECOMB 1 MG INJ SUBCUT PRN (11:13)
[2018-08-06] MEDS ORDERED: DEXTROSE 50%-WATER 25 GM/50 ML DISP.SYRIN IV PRN ×4 (11:13→11:24)
[2018-08-06] MEDS ORDERED: DEXTROSE 40% GEL 15 GM TUBE PO PRN ×4 (11:13→11:24)
[2018-08-06] MEDS ORDERED: GLUCAGON,HUMAN RECOMB 1 MG INJ IM PRN (11:24)
[2018-08-06] MEDS: VANCOMYCIN HCL 1,000 MG in DEXTROSE 5%-WATER 250 ML IV SCH (11:33)
[2018-08-06] MEDS: DOCUSATE SODIUM 100 MG CAPSULE PO SCH ×2 (11:33→17:55)
[2018-08-06] MEDS ORDERED: PIPERACILLIN/TAZOBACTAM 3.375 GM VIAL IV SCH (12:00)
[2018-08-06] MEDS: PIPERACILLIN SODIUM/TAZOBACTAM 3.375 GM in NORMAL SALINE 100 ML IV SCH ×3 (13:15→23:51)
[2018-08-06] MEDS: INSULIN REG, HUMAN 100 UNIT/ML 3 ML VIAL (PYX) SUBCUT SCH ×3 (13:16→21:47)
[2018-08-06] MEDS: TRAMADOL HCL 50 MG TABLET PO PRN ×2 (13:17→21:45)
[2018-08-06] MEDS: CYCLOBENZAPRINE HCL 10 MG TABLET PO PRN (16:43)
--- NOTE | 2018-08-06 18:58 | PDOC PROGRESS REPORT ---
Subjective Progress Note for:: 08/06/18 Subjective:: I seen patient sitting up in bed. Her wound is dressed and there is no drainage. Yesterday she undergone incision and drainage and removal of necrotic tissue which left her with skin defect. She is scheduled for second round incision drainage and total debridement. Her wound culture grew gram-positive cocci in cluster and she is already on vancomycin. Reason For Visit: ABCESS DIABETIC Physical Exam Vital Signs: Temp Pulse Resp BP Pulse Ox 99.1 F 90 14 135/58 H 96 08/06/18 15:36 08/06/18 15:36 08/06/18 15:36 08/06/18 15:36 08/06/18 15:36 Intake & Output 08/05/18 08/06/18 08/07/18 06:59 06:59 06:59 Intake Total 1668 2800 1281 Output Total 510 1000 Balance 1668 2290 281 Weight 74.9 kg 77.5 kg General appearance: PRESENT: no acute distress Head exam: PRESENT: other - Left temporoparietal scalp cellulitis status post incision and drainage Eye exam: PRESENT: conjunctiva pink Mouth exam: PRESENT: moist Neck exam: ABSENT: carotid bruit, JVD, lymphadenopathy, thyromegaly Respiratory exam: PRESENT: clear to auscultation dontrell. ABSENT: rales, rhonchi, wheezes Cardiovascular exam: PRESENT: RRR. ABSENT: diastolic murmur, rubs, systolic murmur GI/Abdominal exam: PRESENT: normal bowel sounds, soft. ABSENT: distended, gua rding, mass, organolmegaly, rebound, tenderness Neurological exam: PRESENT: alert, altered, oriented to time, oriented to situation Results Laboratory Results: 08/06/18 06:21 08/06/18 09:45 08/06/18 08/06/18 08/06/18 06:21 06:21 06:21 WBC 14.2 H RBC 4.21 Hgb 12.5 Hct 36.8 MCV 88 MCH 29.7 MCHC 33.9 RDW 14.1 H Plt Count 231 Seg Neutrophils % 84.0 H Lymphocytes % 9.7 L Monocytes % 5.3 Eosinophils % 0.5 Basophils % 0.5 Absolute Neutrophils 11.9 H Absolute Lymphocytes 1.4 Absolute Monocytes 0.8 Absolute Eosinophils 0.1 Absolute Basophils 0.1 Sodium 135.4 L Potassium 4.7 Chloride 106 Carbon Dioxide 22 Anion Gap 7 BUN 17 Creatinine 0.52 Est GFR ( Amer) > 60 Est GFR (Non-Af Amer) > 60 Glucose 339 H Calcium 8.6 TSH 4.62 08/06/18 09:45 WBC RBC Hgb Hct MCV MCH MCHC RDW Plt Count Seg Neutrophils % Lymphocytes % Monocytes % Eosinophils % Basophils % Absolute Neutrophils Absolute Lymphocytes Absolute Monocytes Absolute Eosinophils Absolute Basophils Sodium Potassium Chloride Carbon Dioxide Anion Gap BUN Creatinine 0.54 Est GFR ( Amer) > 60 Est GFR (Non-Af Amer) > 60 Glucose Calcium TSH 08/05/18 19:40 Head - Forehead Gram Stain - Final Impressions: Head CT 08/04/18 16:34 IMPRESSION: No acute intracranial pathology. Soft tissue swelling over the left frontal scalp. EVIDENCE OF ACUTE STROKE: NO. Orbit CT 08/04/18 18:47 IMPRESSION: No acute orbital findings. Assessment & Plan - Diagnosis (1) Abscess or cellulitis of scalp Is this a current diagnosis for this admission?: Yes Plan: Status post incision and drainage and patient has been on vancomycin. (2) Sepsis Is this a current diagnosis for this admission?: Yes Plan: Continue vancomycin (3) Type 2 diabetes mellitus Is this a current diagnosis for this admission?: Yes Plan: It has been on a sliding scale and started on Levemir 15 units nightly (4) Leukocytosis Is this a current diagnosis for this admission?: Yes Plan: Has been trending down. (5) Hypothyroidism Is this a current diagnosis for this admission?: Yes Plan: Continue Synthroid (6) A-fib Is this a current diagnosis for this admission?: Yes Plan: Rate controlled and patient has been on Xarelto for anticoagulation.
[2018-08-06] MEDS: VANCOMYCIN HCL 1,250 MG in DEXTROSE 5%-WATER 250 ML IV SCH (21:45)
[2018-08-06] MEDS: INSULIN DETEMIR 100 UNIT/ML 3 ML PEN SUBCUT SCH (21:47)
[2018-08-06] MEDS: NORMAL SALINE 1000 ML 1,000 ML IV PRN (23:00)
[2018-08-07] MEDS: TRAMADOL HCL 50 MG TABLET PO PRN ×3 (03:50→22:18)
[2018-08-07] MEDS: PIPERACILLIN SODIUM/TAZOBACTAM 3.375 GM in NORMAL SALINE 100 ML IV SCH ×3 (05:23→18:38)
[2018-08-07] MEDS ORDERED: (PENDING PHARMACY ID) (Diltiazem Hcl [Diltiazem 24hr Er] 240 MG) PO SCH (10:00)
[2018-08-07] MEDS: DOCUSATE SODIUM 100 MG CAPSULE PO SCH ×2 (10:02→18:30)
[2018-08-07] MEDS: LOSARTAN POTASSIUM 50 MG TABLET PO SCH (10:02)
[2018-08-07] MEDS: DILTIAZEM HCL 240 MG CAPSULE.CR PO SCH (10:02)
[2018-08-07] MEDS: VANCOMYCIN HCL 1,250 MG in DEXTROSE 5%-WATER 250 ML IV SCH ×2 (10:03→22:20)
[2018-08-07] MEDS: INSULIN REG, HUMAN 100 UNIT/ML 3 ML VIAL (PYX) SUBCUT SCH ×4 (10:03→22:20)
[2018-08-07] MEDS: SERTRALINE HCL 50 MG TABLET PO SCH (10:04)
[2018-08-07] MEDS: ALPRAZOLAM 0.5 MG TABLET PO PRN ×2 (10:04→22:18)
[2018-08-07] MEDS: LEVOTHYROXINE SODIUM 0.1 MG TABLET PO SCH (10:05)
--- NOTE | 2018-08-07 13:41 | PDOC PROGRESS REPORT ---
Subjective Progress Note for:: 08/07/18 Reason For Visit: ABCESS DIABETIC Physical Exam Vital Signs: Temp Pulse Resp BP Pulse Ox 98.5 F 95 16 122/58 L 95 08/07/18 11:18 08/07/18 11:18 08/07/18 11:18 08/07/18 11:18 08/07/18 11:18 Intake & Output 08/06/18 08/07/18 08/08/18 06:59 06:59 06:59 Intake Total 2800 2331 350 Output Total 510 2000 Balance 2290 331 350 Weight 77.5 kg 76.8 kg General appearance: PRESENT: no acute distress Head exam: PRESENT: other - less facial swelling left forehead wound with clean base still with surrounding cellulitis some skin edge necrosis vs cauterization injury will cont with dressing changes today. Results Laboratory Results: 08/06/18 06:21 08/06/18 09:45 08/05/18 19:40 Head - Forehead Gram Stain - Final Impressions: Head CT 08/04/18 16:34 IMPRESSION: No acute intracranial pathology. Soft tissue swelling over the left frontal scalp. EVIDENCE OF ACUTE STROKE: NO. Orbit CT 08/04/18 18:47 IMPRESSION: No acute orbital findings. Assessment & Plan - Diagnosis (1) Abscess or cellulitis of scalp Is this a current diagnosis for this admission?: Yes
--- NOTE | 2018-08-07 14:30 | PDOC PROGRESS REPORT ---
Subjective Progress Note for:: 08/07/18 Subjective:: Patient seen and examined while sitting up in bed. Her left forehead is cleanly dressed. She is awake alert oriented. She is not in pain or distress. The wound debridement which is scheduled for today has been canceled. Dr. Solorio states patient needs wound VAC. Her wound culture is positive for gram-positive cocci in cluster sensitivities pending. Reason For Visit: ABCESS DIABETIC Physical Exam Vital Signs: Temp Pulse Resp BP Pulse Ox 98.5 F 95 16 122/58 L 95 08/07/18 11:18 08/07/18 11:18 08/07/18 11:18 08/07/18 11:18 08/07/18 11:18 Intake & Output 08/06/18 08/07/18 08/08/18 06:59 06:59 06:59 Intake Total 2800 2331 350 Output Total 510 2000 Balance 2290 331 350 Weight 77.5 kg 76.8 kg General appearance: PRESENT: no acute distress Head exam: PRESENT: other - Her left frontoparietal wound is dressed. Eye exam: PRESENT: conjunctiva pink Mouth exam: PRESENT: moist Neck exam: ABSENT: carotid bruit, JVD, lymphadenopathy, thyromegaly Respiratory exam: PRESENT: clear to auscultation dontrell. ABSENT: rales, rhonchi, wheezes Cardiovascular exam: PRESENT: RRR. ABSENT: diastolic murmur, rubs, systolic murmur GI/Abdominal exam: PRESENT: normal bowel sounds, soft. ABSENT: distended, guarding, mass, organolmegaly, rebound, tenderness Neurological exam: PRESENT: alert, awake, oriented to time, oriented to situation Results Laboratory Results: 08/06/18 06:21 08/06/18 09:45 08/05/18 19:40 Head - Forehead Gram Stain - Final Impressions: Head CT 08/04/18 16:34 IMPRESSION: No acute intracranial pathology. Soft tissue swelling over the left frontal scalp. EVIDENCE OF ACUTE STROKE: NO. Orbit CT 08/04/18 18:47 IMPRESSION: No acute orbital findings. Assessment & Plan - Diagnosis (1) Abscess or cellulitis of scalp Is this a current diagnosis for this admission?: Yes Plan: Status post incision and drainage and patient has been on vancomycin. (2) Sepsis Is this a current diagnosis for this admission?: Yes Plan: Continue vancomycin (3) Type 2 diabetes mellitus Is this a current diagnosis for this admission?: Yes Plan: It has been on a sliding scale and started on Levemir 15 units nightly (4) Leukocytosis Is this a current diagnosis for this admission?: Yes Plan: Has been trending down. (5) Hypothyroidism Is this a current diagnosis for this admission?: Yes Plan: Continue Synthroid (6) A-fib Is this a current diagnosis for this admission?: Yes Plan: Rate controlled and patient has been on Xarelto for anticoagulation.
[2018-08-07] MEDS: RIVAROXABAN 10 MG TABLET PO SCH (16:16)
[2018-08-07] MEDS: CYCLOBENZAPRINE HCL 10 MG TABLET PO PRN (16:16)
[2018-08-07] MEDS: NORMAL SALINE 1000 ML 1,000 ML IV PRN (16:18)
[2018-08-07] MEDS: ACETAMINOPHEN 325 MG TABLET PO PRN (22:19)
[2018-08-07] MEDS: INSULIN DETEMIR 100 UNIT/ML 3 ML PEN SUBCUT SCH (22:20)
[2018-08-08] MEDS: PIPERACILLIN SODIUM/TAZOBACTAM 3.375 GM in NORMAL SALINE 100 ML IV SCH ×5 (01:31→17:28)
[2018-08-08 05:53] LABS: HEMATOCRIT 38.2 % (36.0-47.0); HEMOGLOBIN 12.9 g/dL (12.0-15.5); MEAN CORPUSCULAR HEMOGLOBIN 29.6 pg (27.0-33.4); MEAN CORPUSCULAR HGB CONC 33.8 g/dL (32.0-36.0); MEAN CORPUSCULAR VOLUME 88 fl (80-97); PLATELET COUNT 243 10^3/uL (150-450); RED BLOOD COUNT 4.35 10^6/uL (3.72-5.28); RED CELL DISTRIBUTION WIDTH 14.5 % (11.5-14.0); WHITE BLOOD COUNT 9.7 10^3/uL (4.0-10.5)
[2018-08-08 06:12] LABS: ABSOLUTE LYMPHOCYTES# (MANUAL) 1.9 10^3/uL (0.5-4.7); ABSOLUTE MONOCYTES # (MANUAL) 0.4 10^3/uL (0.1-1.4); ABSOLUTE NEUTROPHILS# (MANUAL) 7.3 10^3/uL (1.7-8.2); BASOPHILS % (MANUAL) 0 % (0-2); EOSINOPHILS % (MANUAL) 1 % (0-6); LYMPHOCYTES % (MANUAL) 20 % (13-45); MONOCYTES % (MANUAL) 4 % (3-13); RBC MORPHOLOGY COMMENT NORMO-CYTIC/CHROMIC; SEGMENTED NEUTROPHILS % (MAN) 75 % (42-78); TOTAL CELLS COUNTED 100
[2018-08-08 06:13] LABS: PLATELET COMMENT ADEQUATE
[2018-08-08] MEDS: LEVOTHYROXINE SODIUM 0.1 MG TABLET PO SCH (07:33)
[2018-08-08] MEDS: TRAMADOL HCL 50 MG TABLET PO PRN ×3 (08:18→22:15)
[2018-08-08] MEDS: INSULIN REG, HUMAN 100 UNIT/ML 3 ML VIAL (PYX) SUBCUT SCH ×4 (08:18→22:15)
--- NOTE | 2018-08-08 10:39 | PDOC PROGRESS REPORT ---
Subjective Progress Note for:: 08/08/18 Subjective:: no c/o Reason For Visit: ABCESS DIABETIC Physical Exam Vital Signs: Temp Pulse Resp BP Pulse Ox 98.1 F 73 16 128/72 H 97 08/08/18 07:30 08/08/18 07:30 08/08/18 07:30 08/08/18 07:30 08/08/18 07:30 Intake & Output 08/07/18 08/08/18 08/09/18 06:59 06:59 06:59 Intake Total 2331 2600 Output Total 19990 Balance 331 300 Weight 76.8 kg 76.2 kg General appearance: PRESENT: no acute distress Skin exam: PRESENT: other - left forehead: wound granulating, clean, no erythema or edema Results Laboratory Results: 08/08/18 05:04 08/06/18 09:45 08/08/18 05:04 WBC 9.7 RBC 4.35 Hgb 12.9 Hct 38.2 MCV 88 MCH 29.6 MCHC 33.8 RDW 14.5 H Plt Count 243 Seg Neutrophils % Not Reportable Lymphocytes % Not Reportable Monocytes % Not Reportable Eosinophils % Not Reportable Basophils % Not Reportable Absolute Neutrophils Not Reportable Absolute Lymphocytes Not Reportable Absolute Monocytes Not Reportable Absolute Eosinophils Not Reportable Absolute Basophils Not Reportable 08/05/18 19:40 Head - Forehead Gram Stain - Final Impressions: Head CT 08/04/18 16:34 IMPRESSION: No acute intracranial pathology. Soft tissue swelling over the left frontal scalp. EVIDENCE OF ACUTE STROKE: NO. Orbit CT 08/04/18 18:47 IMPRESSION: No acute orbital findings. Assessment & Plan - Diagnosis (1) Abscess or cellulitis of scalp Is this a current diagnosis for this admission?: Yes - Plan Summary Plan Summary: A/ POD#3 after I&D left forehead abscess w/ skin necrosis WBC noral' Cx GPC Wound left forehead clean P/ Home today AUGMENTIN 875 MG PO bid X 5 DAYS NS wet-to-dry dressing change QD Home Health care nurse for home dressing change Can shower, water/soap on wound are ok No bath till wound is fully closed F/u in Surgery Clinic in 2 weeks with ASHISH Kruse Resume diet resume activities as tolerated
[2018-08-08] MEDS: DILTIAZEM HCL 240 MG CAPSULE.CR PO SCH (10:47)
[2018-08-08] MEDS: DOCUSATE SODIUM 100 MG CAPSULE PO SCH ×2 (10:47→17:28)
[2018-08-08] MEDS: SERTRALINE HCL 50 MG TABLET PO SCH (10:47)
[2018-08-08] MEDS: LOSARTAN POTASSIUM 50 MG TABLET PO SCH (10:48)
[2018-08-08] MEDS: INSULIN DETEMIR 100 UNIT/ML 3 ML PEN SUBCUT SCH ×2 (10:49→22:14)
[2018-08-08] MEDS: NORMAL SALINE 1000 ML 1,000 ML IV PRN (10:49)
[2018-08-08] MEDS: ALPRAZOLAM 0.5 MG TABLET PO PRN ×2 (10:58→22:04)
[2018-08-08] MEDS: VANCOMYCIN HCL 1,250 MG in DEXTROSE 5%-WATER 250 ML IV SCH ×2 (11:00→22:13)
[2018-08-08 11:07] LABS: VANCOMYCIN,TROUGH 15.7 ug/mL (5.0-20.0)
[2018-08-08] MEDS: RIVAROXABAN 10 MG TABLET PO SCH (17:28)
--- NOTE | 2018-08-08 18:01 | PDOC PROGRESS REPORT ---
Subjective Progress Note for:: 08/08/18 Subjective:: I seen patient sitting up in bed. She is awake alert oriented and she is not in pain or distress. Her wound culture positive for MSSA. Patient has been on vancomycin so now I switched her to Unasyn. Reason For Visit: ABCESS DIABETIC Physical Exam Vital Signs: Temp Pulse Resp BP Pulse Ox 97.6 F 82 15 138/67 H 97 08/08/18 12:50 08/08/18 14:00 08/08/18 12:50 08/08/18 12:50 08/08/18 12:50 Intake & Output 08/07/18 08/08/18 08/09/18 06:59 06:59 06:59 Intake Total 2331 2600 1450 Output Total 1999 2300 Balance 143 356 9950 Weight 76.8 kg 76.2 kg Results Laboratory Results: 08/08/18 05:04 08/06/18 09:45 08/08/18 05:04 WBC 9.7 RBC 4.35 Hgb 12.9 Hct 38.2 MCV 88 MCH 29.6 MCHC 33.8 RDW 14.5 H Plt Count 243 Seg Neutrophils % Not Reportable Lymphocytes % Not Reportable Monocytes % Not Reportable Eosinophils % Not Reportable Basophils % Not Reportable Absolute Neutrophils Not Reportable Absolute Lymphocytes Not Reportable Absolute Monocytes Not Reportable Absolute Eosinophils Not Reportable Absolute Basophils Not Reportable 08/05/18 19:40 Head - Forehead Gram Stain - Final Impressions: Head CT 08/04/18 16:34 IMPRESSION: No acute intracranial pathology. Soft tissue swelling over the left frontal scalp. EVIDENCE OF ACUTE STROKE: NO. Orbit CT 08/04/18 18:47 IMPRESSION: No acute orbital findings. Assessment & Plan - Diagnosis (1) Abscess or cellulitis of scalp Is this a current diagnosis for this admission?: Yes Plan: Wound culture is positive for MSSA. DC vancomycin and started on Unasyn. (2) Sepsis Is this a current diagnosis for this admission?: Yes Plan: Continue vancomycin (3) Type 2 diabetes mellitus Is this a current diagnosis for this admission?: Yes Plan: It has been on a sliding scale and started on Levemir 15 units nightly (4) Leukocytosis Is this a current diagnosis for this admission?: Yes Plan: Has been trending down. (5) Hypothyroidism Is this a current diagnosis for this admission?: Yes Plan: Continue Synthroid (6) A-fib Is this a current diagnosis for this admission?: Yes
[2018-08-09] MEDS: PIPERACILLIN SODIUM/TAZOBACTAM 3.375 GM in NORMAL SALINE 100 ML IV SCH ×2 (00:05→05:37)
[2018-08-09] MEDS: NORMAL SALINE 1000 ML 1,000 ML IV PRN (03:20)
[2018-08-09] MEDS: LEVOTHYROXINE SODIUM 0.1 MG TABLET PO SCH (05:37)
[2018-08-09] MEDS: TRAMADOL HCL 50 MG TABLET PO PRN (07:32)
[2018-08-09] MEDS: INSULIN REG, HUMAN 100 UNIT/ML 3 ML VIAL (PYX) SUBCUT SCH ×2 (07:43→12:21)
--- NOTE | 2018-08-09 08:46 | PDOC PROGRESS REPORT ---
Subjective Progress Note for:: 08/09/18 Reason For Visit: ABCESS DIABETIC Physical Exam Vital Signs: Temp Pulse Resp BP Pulse Ox 98.0 F 80 16 138/68 H 96 08/09/18 07:40 08/09/18 07:40 08/09/18 07:40 08/09/18 07:40 08/09/18 07:40 Intake & Output 08/08/18 08/09/18 08/10/18 06:59 06:59 06:59 Intake Total 2600 3980 Output Total 2300 Balance 300 3980 Weight 76.2 kg 76.7 kg Head exam: PRESENT: other - left scalp wound looks much better today. less drainage and cellulitis Results Laboratory Results: 08/08/18 05:04 08/06/18 09:45 08/05/18 19:40 Head - Forehead Gram Stain - Final Impressions: Head CT 08/04/18 16:34 IMPRESSION: No acute intracranial pathology. Soft tissue swelling over the left frontal scalp. EVIDENCE OF ACUTE STROKE: NO. Orbit CT 08/04/18 18:47 IMPRESSION: No acute orbital findings. Assessment & Plan - Diagnosis (1) Abscess or cellulitis of scalp Is this a current diagnosis for this admission?: Yes - Plan Summary Plan Summary: pt can be discharged home on tid dressing changes wet to dry with home health. will obtain appoint next wk in surgery clinic and then consider wound vac.
--- NOTE | 2018-08-09 09:58 | PDOC DISCHARGE SUMMARY ---
General - Admit/Disc Date/PCP Admission Date/Primary Care Provider: 08/04/18 22:29 Discharge Date: 08/09/18 - Discharge Diagnosis (1) Abscess or cellulitis of scalp Is this a current diagnosis for this admission?: Yes (2) Sepsis Is this a current diagnosis for this admission?: Yes (3) Type 2 diabetes mellitus Is this a current diagnosis for this admission?: Yes (4) Leukocytosis Is this a current diagnosis for this admission?: Yes (5) Hypothyroidism Is this a current diagnosis for this admission?: Yes (6) A-fib Is this a current diagnosis for this admission?: Yes - Additional Information Resuscitation Status: Full Code Home Medications: Alprazolam [Xanax] 1 mg PO Q12 PRN 08/05/18 Cyclobenzaprine HCl [Flexeril 10 mg Tablet] 10 mg PO Q8HP PRN 08/05/18 Diltiazem HCl [Diltiazem 24Hr ER] 240 mg PO DAILY 08/05/18 Levothyroxine Sodium [Synthroid 0.1 mg Tablet] 0.1 mg PO DAILY 08/05/18 Losartan Potassium [Cozaar 100 mg Tablet] 100 mg PO DAILY 08/05/18 Ranitidine HCl [Heartburn Relief 150] 150 mg PO QHS 08/05/18 Rivaroxaban [Xarelto] 20 mg PO DAILY 08/05/18 Sertraline HCl [Zoloft 50 mg Tablet] 50 mg PO DAILY 08/05/18 History of Present Illness History of Present Illness: RANDAL ROMERO is a 73 year old female with a past medical history of paroxysmal atrial fibrillation on Eliquis status post ablation and currently in sinus rhythm, diabetes, hypothyroidism, fibromyalgia and chronic pain. She presents with a 5-day history of a tender lump on the left scalp. She denies trauma or scratch and has treated with [id number] topical treatments without improvement. In the emergency room she has a 2 x 2 centimeter indurated crusted lesion without exudate but extensive swelling to the left forehead and periorbital space. A CT does not show fluid collection she is started on IV antibiotics and referred to the hospitalist for admission. She denies previous episode or recent antibiotics she admits recent poor glycemic control. Hospital Course Hospital Course: This is a 73 years old female patient with multiple comorbidities including paroxysmal atrial fibrillation, hypertension, hyperlipidemia, type 2 diabetes mellitus, hypothyroidism and fibromyalgia presented with 5 days history of tender swelling over her scalp. Her initial evaluation shows marked leukocytosis with white cell count of 21,000. Patient has been started empirically on vancomycin. At admission patient has scalp swelling which is located over the left frontotemporal area measures 2 x 3 cm it is erythematous tender and fluctuating. I consulted Dr. Kumar who performed incision drainage and total debridement. Patient reevaluated by Dr. Dong who cleared her for discharge. Her wound culture grew MSSA which is pansensitive. I will send her home with clindamycin for 5 days. During her stay patient has been running moderate hyperglycemia. Patient was diagnosed with prediabetes but she is not on any antidiabetic medication. Her hemoglobin A1c is greater than 10. Patient has been started on Lantus 15 units subcu nightly and 10 units subcu every morning. I will prescribe for her Lantus and Metformin. The nurse will educate and train her how to give insulin for herself and also the signs and symptoms of hypoglycemia and how to avoid it. She has upcoming appointment with her primary care physician and Dr. Kumar in 1 week. Physical Exam Vital Signs: Temp Pulse Resp BP Pulse Ox 98.0 F 80 16 138/68 H 96 08/09/18 07:40 08/09/18 07:40 08/09/18 07:40 08/09/18 07:40 08/09/18 07:40 Intake & Output 08/08/18 08/09/18 08/10/18 06:59 06:59 06:59 Intake Total 2600 3980 Output Total 2300 Balance 300 3980 Weight 76.2 kg 76.7 kg General appearance: PRESENT: no acute distress Head exam: PRESENT: other - Granulating wound over the left frontotemporal area Neck exam: ABSENT: carotid bruit, JVD, lymphadenopathy, thyromegaly Respiratory exam: PRESENT: clear to auscultation dontrell. ABSENT: rales, rhonchi, wheezes Cardiovascular exam: PRESENT: RRR. ABSENT: diastolic murmur, rubs, systolic murmur GI/Abdominal exam: PRESENT: normal bowel sounds, soft. ABSENT: distended, guarding, mass, organolmegaly, rebound, tenderness Neurological exam: PRESENT: alert, awake, oriented to person, oriented to place, oriented to time, oriented to situation, CN II-XII grossly intact. ABSENT: motor sensory deficit Psychiatric exam: PRESENT: normal mood Results Laboratory Results: 08/08/18 05:04 08/06/18 09:45 08/05/18 19:40 Head - Forehead Gram Stain - Final Impressions: Head CT 08/04/18 16:34 IMPRESSION: No acute intracranial pathology. Soft tissue swelling over the left frontal scalp. EVIDENCE OF ACUTE STROKE: NO. Orbit CT 08/04/18 18:47 IMPRESSION: No acute orbital findings. Qualifiers - * PATIENT BEING DISCHARGED WITH ANY OF THE FOLLOWING DIAGNOSIS: No
[2018-08-09] MEDS: DOCUSATE SODIUM 100 MG CAPSULE PO SCH (10:23)
[2018-08-09] MEDS: SERTRALINE HCL 50 MG TABLET PO SCH (10:23)
[2018-08-09] MEDS: DILTIAZEM HCL 240 MG CAPSULE.CR PO SCH (10:23)
[2018-08-09] MEDS: LOSARTAN POTASSIUM 50 MG TABLET PO SCH (10:23)
[2018-08-09] MEDS: INSULIN DETEMIR 100 UNIT/ML 3 ML PEN SUBCUT SCH (10:24)
[2018-08-09] MEDS ORDERED: CEPHALEXIN 500 MG CAPSULE PO SCH (12:00)
[2018-08-09 12:14] VITALS: BP 154/91
[2018-08-09] MEDS: ALPRAZOLAM 0.5 MG TABLET PO PRN (13:01)
== END 2018-08-09 13:58 | disposition home health service (06) | DRG 854 ==
LOC: ER 15:42 → EH 22:29 → OBSVTOIN 22:29 → 4S 08-05 00:19
PROVIDERS: ADMIT Internal Medicine; ATTEND Internal Medicine
PROC: 0JB00ZZ Excision of Scalp Subcutaneous Tissue and Fascia, Open Approach (ICD-10-PCS; 2018-08-05)
PROC: 0J900ZX Drainage of Scalp Subcutaneous Tissue and Fascia, Open Approach, Diagnostic (ICD-10-PCS; principal; 2018-08-05 20:00)
DX: A41.9 Sepsis, unspecified organism (principal); L02.811 Cutaneous abscess of head [any part, except face]; B95.61 Methicillin susceptible Staphylococcus aureus infection as the cause of diseases classified elsewhere; I48.0 Paroxysmal atrial fibrillation; E11.65 Type 2 diabetes mellitus with hyperglycemia; D64.9 Anemia, unspecified; I10 Essential (primary) hypertension; K21.9 Gastro-esophageal reflux disease without esophagitis; K44.9 Diaphragmatic hernia without obstruction or gangrene; E03.9 Hypothyroidism, unspecified; E78.5 Hyperlipidemia, unspecified; M19.90 Unspecified osteoarthritis, unspecified site; M79.7 Fibromyalgia; F32.9 Major depressive disorder, single episode, unspecified; Z79.02 Long term (current) use of antithrombotics/antiplatelets; Z79.82 Long term (current) use of aspirin; Z79.899 Other long term (current) drug therapy; Z90.49 Acquired absence of other specified parts of digestive tract; Z90.710 Acquired absence of both cervix and uterus; Z87.891 Personal history of nicotine dependence; Z88.2 Allergy status to sulfonamides; Z91.040 Latex allergy status; Z91.013 Allergy to seafood; Z88.8 Allergy status to other drugs, medicaments and biological substances
CPT/HCPCS: 300; 36415; 70450; 70481; 80048; 80053; 80202; 82565; 82962; 83036; 84443; 85025; 87040; 87070; 87075; 87077; 87101; 87186; 87205; 88304; 93005; 93010; 96361; 96365; 96375; 99285; G0378; J0131; J0696; J1100; J1815; J1885; J2001; J2250; J2405; J2543; J2704; J3010; J3370; J3490; J7030; J7060

== ENCOUNTER → 2020-06-09 | Outpatient (CLI) | payer MEDICARE, OTHER ==
--- NOTE | 2020-06-09 16:00 | RADIOLOGY REPORT (SQ) ---
EXAM DESCRIPTION: NM 3 PHASE BONE SCAN IMAGES COMPLETED DATE/TIME: 06/09/2020 2:53 pm REASON FOR STUDY: (M25.561)PAIN IN RIGHT KNEE M25.561 PAIN IN RIGHT KNEE COMPARISON: Various imaging studies. RADIONUCLIDE AND DOSE: 21.2 millicuries Tc99m MDP. The route of agent administration: Intravenous. ADDITIONAL DRUGS AND DOSES: None. TECHNIQUE: Following injection of the radiopharmaceutical, serial blood flow images acquired. Equil ibrium blood pool images then acquired. Routine delayed images at 3 hours acquired of the areas of c linical concern with additional focused images as needed. AREA OF INTEREST: Right knee LIMITATIONS: None. FINDINGS: VASCULAR FLOW IMAGES: No asymmetry or focal areas of hyperemia. BLOOD POOL IMAGES: No asymmetry or focal areas of soft-tissue hyper-perfusion. BONES: There is mild delayed uptake around the right knee arthroplasty. KIDNEYS: Symmetric excretion without obstruction. OTHER: No other significant finding. IMPRESSION: There is mild uptake around the right knee arthroplasty. There is no associated hyperem ia or increased blood pool activity. Findings are consistent with the presence of right knee arthrop lasty with no acute findings. COMMENT: Quality measure 147: Current bone scan is compared with any available plain radiographs, p rior bone scans, and CT/MRI. TECHNICAL DOCUMENTATION: JOB ID: [id number] 2010 [employer]- All Rights Reserved Reading location - IP/workstation name: [email or web address]
== END ==
LOC: RAD 11:30
PROVIDERS: ATTEND Orthopaedic Surgery
DX: M25.561 Pain in right knee (principal)
CPT/HCPCS: 78315; A9503; Q9969

== ENCOUNTER → 2020-06-09 | Outpatient (CLI) | payer MEDICARE, OTHER ==
[2020-06-09 15:43] LABS: ABSOLUTE BASOPHILS # (AUTO) 0.1 10^3/uL (0.0-0.2); ABSOLUTE EOSINOPHILS # (AUTO) 0.1 10^3/uL (0.0-0.6); ABSOLUTE LYMPHOCYTES (AUTO) 1.8 10^3/uL (0.5-4.7); ABSOLUTE MONOCYTES (AUTO) 0.5 10^3/uL (0.1-1.4); BASOPHILS % (AUTO) 0.9 % (0-2); EOSINOPHILS % (AUTO) 0.7 % (0-6); HEMATOCRIT 44.6 % (36.0-47.0); HEMOGLOBIN 15.1 g/dL (12.0-15.5); LYMPHOCYTES % (AUTO) 18.7 % (13-45); MEAN CORPUSCULAR HEMOGLOBIN 30.4 pg (27.0-33.4); MEAN CORPUSCULAR VOLUME 90 fl (80-97); MONOCYTES % (AUTO) 5.7 % (3-13); PLATELET COUNT 304 10^3/uL (150-450); RED BLOOD COUNT 4.98 10^6/uL (3.72-5.28); RED CELL DISTRIBUTION WIDTH 13.4 % (11.5-14.0); TOTAL CELLS COUNTED % (AUTO) 100 %; WHITE BLOOD COUNT 9.5 10^3/uL (4.0-10.5)
[2020-06-09 16:30] LABS: ERYTHROCYTE SEDIMENTATION RATE 9 mm/hr (0-30)
== END ==
LOC: OD 12:30
PROVIDERS: ATTEND Orthopaedic Surgery
DX: M25.561 Pain in right knee (principal)
CPT/HCPCS: 36415; 85025; 85652; 86140